=== PATIENT | female | born 1940 | race Caucasian/White ===

== ENCOUNTER 2016-09-09 23:17 | Emergency (ER) | payer MEDICARE, OTHER ==
[~2016-09-09] VITALS: Ht 147.3 cm; Wt 64.2 kg
[2016-09-09 23:19] VITALS: BP 157/82
== END 2016-09-10 00:49 | disposition home or self-care (01) ==
LOC: ED 23:59
DX: S81.812A Laceration without foreign body, left lower leg, initial encounter (principal); I10 Essential (primary) hypertension; G62.9 Polyneuropathy, unspecified; W22.8XXA Striking against or struck by other objects, initial encounter; Y93.89 Activity, other specified; Y99.8 Other external cause status; Y92.009 Unspecified place in unspecified non-institutional (private) residence as the place of occurrence of the external cause
CPT/HCPCS: 12002; 99283

== ENCOUNTER 2017-08-04 19:34 | Inpatient (IN) | payer MEDICARE, OTHER ==
[~2017-08-04] VITALS: Ht 147.3 cm; Wt 75.9 kg
[2017-08-04] MEDS ORDERED: OMNIPAQUE 350 MG/ML, 100ML BOTTLE ONE (20:00)
[2017-08-04] MEDS ORDERED: SODIUM CHLORIDE 0.9% 1,000 ML IV ONE (20:02)
[2017-08-04] MEDS ORDERED: LOPERAMIDE 2 MG CAPSULE ONE (20:24)
[2017-08-04] MEDS ORDERED: LOPERAMIDE 2 MG CAPSULE PO ONE (20:30)
[2017-08-04] MEDS ORDERED: SODIUM CHLORIDE FLUSH 10ML SYR IVF ONE (20:30)
[2017-08-04] MEDS ORDERED: SODIUM CHLORIDE 0.9% 1,000ML IVBOLUS ONE (20:30)
[2017-08-04 20:36] LABS: BASOPHILS # (AUTO) 0.01 x10^3/uL (0-0.1); BASOPHILS % (AUTO) 0 % (0-1); EOSINOPHILS # (AUTO) 0.01 x10^3/uL (0-0.4); EOSINOPHILS % (AUTO) 0 % (1-7); LYMPHOCYTES # (AUTO) 1.67 x10^3/uL (1-3.4); LYMPHOCYTES % (AUTO) 10 % (22-44); MD NO; MEAN CORPUSCULAR HEMOGLOBIN 30.8 pg (27.0-34.8); MEAN CORPUSCULAR HGB CONC 34.5 g/dL (32.4-35.8); MEAN CORPUSCULAR VOLUME 89.3 fL (80-100); MEAN PLATELET VOLUME 7.9 fL (7.4-10.4); MONOCYTES # (AUTO) 1.37 x10^3/uL (0.2-0.8); MONOCYTES % (AUTO) 8 % (2-9); NEUTROPHILS % (AUTO) 82 % (42-75); PLATELET COUNT 324 x10^3/uL (130-400); RED BLOOD COUNT 4.18 x10^6/uL (3.82-5.3); RED CELL DISTRIBUTION WIDTH 14.3 % (9.6-15.2)
[2017-08-04 20:43] LABS: ALBUMIN 3.4 g/dL (3.4-5.0); ANION GAP 12 mmol/L (5-15); CALCIUM 8.4 mg/dL (8.5-10.1); CHLORIDE 103 mmol/L (98-107); CREATININE 2.73 mg/dL (0.55-1.02)
[2017-08-04 20:51] LABS: ALANINE AMINOTRANSFERASE 25 U/L (12-78); ALKALINE PHOSPHATASE 94 U/L (45-117); BILIRUBIN,TOTAL 0.6 mg/dL (0.2-1.0); TOTAL PROTEIN 7.1 g/dL (6.4-8.2)
[2017-08-04] MEDS ORDERED: OMEP-110 PO (21:36)
[2017-08-04] MEDS ORDERED: VITA400C42 PO (21:36)
[2017-08-04] MEDS ORDERED: CHOL100012 PO (21:36)
[2017-08-04] MEDS ORDERED: CYCL1DRO EACHEYE (21:36)
[2017-08-04] MEDS ORDERED: FLAX1CAP6 PO (21:36)
[2017-08-04] MEDS ORDERED: FURO40TA6 PO (21:36)
[2017-08-04] MEDS ORDERED: ASCO500C2 PO (21:36)
[2017-08-04] MEDS ORDERED: METO25TA2 PO (21:36)
[2017-08-04] MEDS ORDERED: DESL5TAB PO (21:36)
[2017-08-04] MEDS ORDERED: BENA20TA2 PO (21:36)
[2017-08-04] MEDS ORDERED: ASPI-621 PO (21:36)
[2017-08-04] MEDS ORDERED: MULT-717 PO (21:36)
[2017-08-04] MEDS ORDERED: OMEG-82 PO (21:36)
[2017-08-04] MEDS ORDERED: OLOP2.5D EACHEYE (21:36)
[2017-08-04] MEDS ORDERED: FLUT15.87 NAS (21:36)
[2017-08-04] MEDS ORDERED: CALC-534 PO (21:36)
[2017-08-04] MEDS ORDERED: PREG75CA PO (21:36)
[2017-08-04] MEDS ORDERED: PRAV10TA2 PO (21:36)
[2017-08-04] MEDS ORDERED: PREG150C PO (21:36)
[2017-08-04] MEDS ORDERED: NORT25CA PO (21:36)
[2017-08-04] MEDS ORDERED: LEVO88TA43 PO (21:36)
[2017-08-04] MEDS ORDERED: CIPROFLOXACIN/PMX 400MG/200ML 200 ML IV ONE (22:30)
[2017-08-04] MEDS ORDERED: METRONIDAZOLE PMX 500MG/100ML 100 ML IV ONE (22:30)
[2017-08-04] MEDS ORDERED: SODIUM CHLORIDE 0.9% 1,000 ML IV SCH (22:40)
[2017-08-04] MEDS ORDERED: ACETAMINOPHEN 325 MG TABLET PO PRN (23:00)
[2017-08-04] MEDS ORDERED: PHARMACY MAY ADJ FOR RENAL FX MC PRN (23:00)
[2017-08-04] MEDS ORDERED: ONDANSETRON ODT 4 MG PO PRN (23:00)
[2017-08-04] MEDS ORDERED: FUROSEMIDE 40 MG TABLET PO PRN (23:00)
[2017-08-05 00:11] VITALS: BP 102/64
[2017-08-05] MEDS ORDERED: CIPROFLOXACIN/PMX 400MG/200ML 200 ML IV SCH ×2 (00:30→23:00)
[2017-08-05] MEDS: PREGABALIN 150 MG CAPSULE PO SCH ×2 (00:32→20:52)
[2017-08-05] MEDS: PRAVASTATIN 20 MG TABLET PO SCH ×2 (00:32→20:51)
[2017-08-05] MEDS: NORTRIPTYLINE 25 MG CAPSULE PO SCH ×2 (00:32→20:51)
[2017-08-05 00:47] VITALS: BP 102/64
[2017-08-05] MEDS: METRONIDAZOLE PMX 500MG/100ML 100 ML IV SCH ×4 (02:14→20:51)
[2017-08-05 04:00] VITALS: BP 91/57
[2017-08-05 05:03] LABS: ANION GAP 9 mmol/L (5-15); CALCIUM 7.5 mg/dL (8.5-10.1); CHLORIDE 108 mmol/L (98-107); CREATININE 1.95 mg/dL (0.55-1.02)
[2017-08-05 05:11] LABS: BASOPHILS # (AUTO) 0.04 x10^3/uL (0-0.1); BASOPHILS % (AUTO) 0 % (0-1); EOSINOPHILS # (AUTO) 0.05 x10^3/uL (0-0.4); EOSINOPHILS % (AUTO) 0 % (1-7); LYMPHOCYTES # (AUTO) 2.47 x10^3/uL (1-3.4); LYMPHOCYTES % (AUTO) 18 % (22-44); MD NO; MEAN CORPUSCULAR HEMOGLOBIN 31.6 pg (27.0-34.8); MEAN CORPUSCULAR HGB CONC 34.9 g/dL (32.4-35.8); MEAN CORPUSCULAR VOLUME 90.4 fL (80-100); MEAN PLATELET VOLUME 7.8 fL (7.4-10.4); MONOCYTES # (AUTO) 1.11 x10^3/uL (0.2-0.8); MONOCYTES % (AUTO) 8 % (2-9); NEUTROPHILS # (AUTO) 9.97 x10^3/uL (1.8-6.8); NEUTROPHILS % (AUTO) 73 % (42-75); PLATELET COUNT 246 x10^3/uL (130-400); RED BLOOD COUNT 3.74 x10^6/uL (3.82-5.3); RED CELL DISTRIBUTION WIDTH 14.6 % (9.6-15.2)
[2017-08-05] MEDS: LEVOTHYROXINE 88 MCG TABLET PO SCH (06:19)
[2017-08-05] MEDS ORDERED: MAGNESIUM SULFATE PMX 4GM/100M 100 ML IV ONE (07:30)
[2017-08-05 07:51] VITALS: BP 93/62
[2017-08-05] MEDS: LORATADINE 10 MG TABLET PO SCH (08:32)
[2017-08-05] MEDS: MULTIVITAMINS/MINERALS TABLET PO SCH (08:32)
[2017-08-05] MEDS: PREGABALIN 75 MG CAPSULE PO SCH (08:32)
[2017-08-05] MEDS: OMEPRAZOLE 20 MG CAPSULE.DR PO SCH (08:32)
[2017-08-05] MEDS: LACTATED RINGERS 1,000 ML IV SCH ×2 (08:33→17:47)
[2017-08-05] MEDS: OLOPATADINE HCL EACHEYE SCH (08:33)
[2017-08-05] MEDS ORDERED: BENAZEPRIL 20 MG TABLET PO SCH (09:00)
[2017-08-05] MEDS: FLUTICASONE NASAL SPRAY 16GM NAS SCH (10:30)
[2017-08-05 12:31] VITALS: BP 104/67
[2017-08-05 20:14] VITALS: BP 108/67
[2017-08-05] MEDS: METOPROLOL SUCCINATE 25 MG TAB.ER.24H PO SCH (20:51)
[2017-08-05 21:20] LABS: MICROSCOPIC AUTO
[2017-08-05 21:28] LABS: CULTURE INDICATED? YES
[2017-08-06 00:27] VITALS: BP 118/74
[2017-08-06] MEDS: METRONIDAZOLE PMX 500MG/100ML 100 ML IV SCH ×4 (02:41→20:02)
[2017-08-06] MEDS: LACTATED RINGERS 1,000 ML IV SCH ×2 (03:45→12:00)
[2017-08-06] MEDS: LEVOTHYROXINE 88 MCG TABLET PO SCH (06:25)
[2017-08-06 07:36] VITALS: BP 97/56
[2017-08-06] MEDS ORDERED: POLYETHYLENE GLYCOL 17 GM PACKET PO ONE (08:00)
[2017-08-06 08:25] LABS: BASOPHILS # (AUTO) 0.06 x10^3/uL (0-0.1); BASOPHILS % (AUTO) 1 % (0-1); EOSINOPHILS # (AUTO) 0.15 x10^3/uL (0-0.4); EOSINOPHILS % (AUTO) 1 % (1-7); LYMPHOCYTES # (AUTO) 1.95 x10^3/uL (1-3.4); LYMPHOCYTES % (AUTO) 18 % (22-44); MD NO; MEAN CORPUSCULAR HEMOGLOBIN 30.1 pg (27.0-34.8); MEAN CORPUSCULAR HGB CONC 33.6 g/dL (32.4-35.8); MEAN CORPUSCULAR VOLUME 89.7 fL (80-100); MEAN PLATELET VOLUME 7.7 fL (7.4-10.4); MONOCYTES # (AUTO) 0.83 x10^3/uL (0.2-0.8); MONOCYTES % (AUTO) 8 % (2-9); NEUTROPHILS # (AUTO) 7.94 x10^3/uL (1.8-6.8); NEUTROPHILS % (AUTO) 73 % (42-75); PLATELET COUNT 289 x10^3/uL (130-400); RED BLOOD COUNT 3.77 x10^6/uL (3.82-5.3); RED CELL DISTRIBUTION WIDTH 14.9 % (9.6-15.2)
[2017-08-06 08:38] LABS: ALANINE AMINOTRANSFERASE 33 U/L (12-78); ALBUMIN 2.6 g/dL (3.4-5.0); ANION GAP 7 mmol/L (5-15); CALCIUM 7.8 mg/dL (8.5-10.1); CHLORIDE 112 mmol/L (98-107); CREATININE 0.97 mg/dL (0.55-1.02)
[2017-08-06 08:40] LABS: ALKALINE PHOSPHATASE 71 U/L (45-117); BILIRUBIN,TOTAL 0.4 mg/dL (0.2-1.0); TOTAL PROTEIN 6.2 g/dL (6.4-8.2)
[2017-08-06] MEDS: OLOPATADINE HCL EACHEYE SCH (09:00)
[2017-08-06] MEDS: MULTIVITAMINS/MINERALS TABLET PO SCH (09:37)
[2017-08-06] MEDS: FLUTICASONE NASAL SPRAY 16GM NAS SCH (09:37)
[2017-08-06] MEDS: PREGABALIN 75 MG CAPSULE PO SCH (09:37)
[2017-08-06] MEDS: LORATADINE 10 MG TABLET PO SCH (09:37)
[2017-08-06] MEDS: OMEPRAZOLE 20 MG CAPSULE.DR PO SCH (09:38)
[2017-08-06 12:37] VITALS: BP 109/50
[2017-08-06] MEDS: CIPROFLOXACIN/PMX 400MG/200ML 200 ML IV SCH (17:42)
[2017-08-06 19:45] VITALS: BP 111/62
[2017-08-06] MEDS: PRAVASTATIN 20 MG TABLET PO SCH (20:02)
[2017-08-06] MEDS: NORTRIPTYLINE 25 MG CAPSULE PO SCH (20:02)
[2017-08-06] MEDS: METOPROLOL SUCCINATE 25 MG TAB.ER.24H PO SCH (20:02)
[2017-08-06] MEDS: PREGABALIN 150 MG CAPSULE PO SCH (20:03)
[2017-08-07] MEDS: METRONIDAZOLE PMX 500MG/100ML 100 ML IV SCH ×3 (02:36→18:38)
[2017-08-07 02:44] VITALS: BP 113/68
[2017-08-07] MEDS: CIPROFLOXACIN/PMX 400MG/200ML 200 ML IV SCH ×3 (05:18→23:53)
[2017-08-07] MEDS: LEVOTHYROXINE 88 MCG TABLET PO SCH (05:18)
[2017-08-07 06:21] LABS: BASOPHILS # (AUTO) 0.03 x10^3/uL (0-0.1); BASOPHILS % (AUTO) 0 % (0-1); EOSINOPHILS # (AUTO) 0.22 x10^3/uL (0-0.4); EOSINOPHILS % (AUTO) 3 % (1-7); LYMPHOCYTES # (AUTO) 2.15 x10^3/uL (1-3.4); LYMPHOCYTES % (AUTO) 30 % (22-44); MD NO; MEAN CORPUSCULAR HEMOGLOBIN 30.5 pg (27.0-34.8); MEAN CORPUSCULAR HGB CONC 33.7 g/dL (32.4-35.8); MEAN CORPUSCULAR VOLUME 90.5 fL (80-100); MEAN PLATELET VOLUME 7.7 fL (7.4-10.4); MONOCYTES # (AUTO) 0.64 x10^3/uL (0.2-0.8); MONOCYTES % (AUTO) 9 % (2-9); NEUTROPHILS # (AUTO) 4.19 x10^3/uL (1.8-6.8); NEUTROPHILS % (AUTO) 58 % (42-75); PLATELET COUNT 287 x10^3/uL (130-400); RED BLOOD COUNT 3.53 x10^6/uL (3.82-5.3); RED CELL DISTRIBUTION WIDTH 15.1 % (9.6-15.2)
[2017-08-07 06:32] LABS: ALBUMIN 2.3 g/dL (3.4-5.0); ANION GAP 8 mmol/L (5-15); CALCIUM 7.9 mg/dL (8.5-10.1); CHLORIDE 113 mmol/L (98-107)
[2017-08-07 06:35] LABS: ALANINE AMINOTRANSFERASE 28 U/L (12-78); ALKALINE PHOSPHATASE 58 U/L (45-117); BILIRUBIN,TOTAL 0.4 mg/dL (0.2-1.0); CREATININE 0.77 mg/dL (0.55-1.02); TOTAL PROTEIN 5.4 g/dL (6.4-8.2)
[2017-08-07 08:26] VITALS: BP 156/83
[2017-08-07] MEDS: OLOPATADINE HCL EACHEYE SCH (09:57)
[2017-08-07] MEDS: LORATADINE 10 MG TABLET PO SCH (10:00)
[2017-08-07] MEDS: FLUTICASONE NASAL SPRAY 16GM NAS SCH ×2 (10:00→10:14)
[2017-08-07] MEDS: PREGABALIN 75 MG CAPSULE PO SCH (10:00)
[2017-08-07] MEDS: OMEPRAZOLE 20 MG CAPSULE.DR PO SCH (10:00)
[2017-08-07] MEDS: POLYETHYLENE GLYCOL 17 GM PACKET PO SCH (10:00)
[2017-08-07] MEDS: MULTIVITAMINS/MINERALS TABLET PO SCH (10:00)
[2017-08-07 14:34] VITALS: BP 159/79
[2017-08-07 19:04] VITALS: BP 131/71
[2017-08-07] MEDS: METOPROLOL SUCCINATE 25 MG TAB.ER.24H PO SCH (21:45)
[2017-08-07] MEDS: NORTRIPTYLINE 25 MG CAPSULE PO SCH (21:45)
[2017-08-07] MEDS: PRAVASTATIN 20 MG TABLET PO SCH (21:46)
[2017-08-07] MEDS: PREGABALIN 150 MG CAPSULE PO SCH (21:46)
[2017-08-08 00:47] VITALS: BP 135/79
[2017-08-08] MEDS: METRONIDAZOLE PMX 500MG/100ML 100 ML IV SCH (02:37)
[2017-08-08] MEDS: LEVOTHYROXINE 88 MCG TABLET PO SCH (05:42)
[2017-08-08] MEDS ORDERED: MAGNESIUM CITRATE 300ML ORAL SOL PO PRN (06:30)
[2017-08-08 08:00] VITALS: BP 145/83
[2017-08-08] MEDS: POLYETHYLENE GLYCOL 17 GM PACKET PO SCH (08:05)
[2017-08-08] MEDS: MULTIVITAMINS/MINERALS TABLET PO SCH (08:05)
[2017-08-08] MEDS: PREGABALIN 75 MG CAPSULE PO SCH (08:05)
[2017-08-08] MEDS: OMEPRAZOLE 20 MG CAPSULE.DR PO SCH (08:05)
[2017-08-08] MEDS: LORATADINE 10 MG TABLET PO SCH (08:05)
[2017-08-08] MEDS: FLUTICASONE NASAL SPRAY 16GM NAS SCH (08:06)
[2017-08-08] MEDS: OLOPATADINE HCL EACHEYE SCH (08:07)
[2017-08-08 13:50] VITALS: BP 131/70
[2017-08-08 14:01] LABS: BASOPHILS # (AUTO) 0.05 x10^3/uL (0-0.1); BASOPHILS % (AUTO) 1 % (0-1); EOSINOPHILS # (AUTO) 0.27 x10^3/uL (0-0.4); EOSINOPHILS % (AUTO) 4 % (1-7); LYMPHOCYTES # (AUTO) 2.33 x10^3/uL (1-3.4); LYMPHOCYTES % (AUTO) 33 % (22-44); MD SCAN; MEAN CORPUSCULAR HEMOGLOBIN 30.7 pg (27.0-34.8); MEAN CORPUSCULAR VOLUME 90.5 fL (80-100); MEAN PLATELET VOLUME 7.7 fL (7.4-10.4); MONOCYTES # (AUTO) 0.72 x10^3/uL (0.2-0.8); MONOCYTES % (AUTO) 10 % (2-9); NEUTROPHILS # (AUTO) 3.68 x10^3/uL (1.8-6.8); NEUTROPHILS % (AUTO) 52 % (42-75); PLATELET COUNT 361 x10^3/uL (130-400); RED CELL DISTRIBUTION WIDTH 14.8 % (9.6-15.2)
== END 2017-08-08 16:14 | disposition home or self-care (01) | DRG 871 ==
LOC: ED 22:33 → EDIP 22:53 → 4WST 23:46 → DCLOUNGE 08-08 16:05
PROVIDERS: ADMIT Hospitalist; ATTEND Hospitalist
DX: A41.9 Sepsis, unspecified organism (principal); N17.0 Acute kidney failure with tubular necrosis; I95.9 Hypotension, unspecified; G62.9 Polyneuropathy, unspecified; E86.1 Hypovolemia; E87.1 Hypo-osmolality and hyponatremia; I11.9 Hypertensive heart disease without heart failure; A09 Infectious gastroenteritis and colitis, unspecified; K92.1 Melena; E03.9 Hypothyroidism, unspecified; E78.5 Hyperlipidemia, unspecified; I73.9 Peripheral vascular disease, unspecified; Z82.3 Family history of stroke; Z90.49 Acquired absence of other specified parts of digestive tract; Z88.1 Allergy status to other antibiotic agents
CPT/HCPCS: 36415; 74176; 80048; 80053; 81001; 83605; 83690; 83735; 85025; 87040; 87086; 93005; 96360; 96361; J0744; Q9967; J3475; J7030; J7120

== ENCOUNTER → 2017-10-03 | Outpatient (CLI) | payer MEDICARE, OTHER ==
[~2017-10-03] MED LIST: ASCO500C2 PO; ASPI-621 PO; BENA20TA2 PO; CALC-534 PO; CHOL100012 PO; CYCL1DRO EACHEYE; DESL5TAB PO; FLAX1CAP6 PO; FLUT15.87 NAS; FURO40TA6 PO; LEVO88TA43 PO; METO25TA2 PO; MULT-717 PO; NORT25CA PO; OLOP2.5D EACHEYE; OMEG-82 PO; OMEP-110 PO; PRAV10TA2 PO; PREG150C PO; PREG75CA PO; VITA400C42 PO
== END | disposition home or self-care (01) ==
LOC: WOUND 09:05
PROVIDERS: ATTEND Podiatrist Foot & Ankle Surgery
DX: I87.332 Chronic venous hypertension (idiopathic) with ulcer and inflammation of left lower extremity (principal); L97.821 Non-pressure chronic ulcer of other part of left lower leg limited to breakdown of skin; E78.5 Hyperlipidemia, unspecified; I73.9 Peripheral vascular disease, unspecified; E03.9 Hypothyroidism, unspecified; G62.9 Polyneuropathy, unspecified; I11.9 Hypertensive heart disease without heart failure; Z90.710 Acquired absence of both cervix and uterus; Z90.49 Acquired absence of other specified parts of digestive tract
CPT/HCPCS: 29581; G0463; WOU0463

== ENCOUNTER → 2017-10-10 | Outpatient (CLI) | payer MEDICARE, OTHER ==
[~2017-10-10] MED LIST changes: -BENA20TA2 PO; +BENA20TA4 PO
== END | disposition home or self-care (01) ==
LOC: WOUND 10:17
PROVIDERS: ATTEND Podiatrist Foot & Ankle Surgery
DX: I87.332 Chronic venous hypertension (idiopathic) with ulcer and inflammation of left lower extremity (principal); L97.821 Non-pressure chronic ulcer of other part of left lower leg limited to breakdown of skin; E78.5 Hyperlipidemia, unspecified; I73.9 Peripheral vascular disease, unspecified; E03.9 Hypothyroidism, unspecified; G62.9 Polyneuropathy, unspecified; I11.9 Hypertensive heart disease without heart failure; Z90.710 Acquired absence of both cervix and uterus; Z90.49 Acquired absence of other specified parts of digestive tract
CPT/HCPCS: G0463; WOU0463

== ENCOUNTER → 2017-10-24 | Outpatient (CLI) | payer MEDICARE, OTHER | END | disposition home or self-care (01) | LOC: WOUND 11:00 | PROVIDERS: ATTEND Podiatrist Foot & Ankle Surgery | DX: I87.332 Chronic venous hypertension (idiopathic) with ulcer and inflammation of left lower extremity (principal); L97.821 Non-pressure chronic ulcer of other part of left lower leg limited to breakdown of skin; E78.5 Hyperlipidemia, unspecified; I73.9 Peripheral vascular disease, unspecified; E03.9 Hypothyroidism, unspecified; G62.9 Polyneuropathy, unspecified; I11.9 Hypertensive heart disease without heart failure; Z90.710 Acquired absence of both cervix and uterus; Z90.49 Acquired absence of other specified parts of digestive tract | CPT/HCPCS: G0463; WOU0463 ==

== ENCOUNTER → 2017-11-07 | Outpatient (CLI) | payer MEDICARE, OTHER | END | disposition home or self-care (01) | LOC: WOUND 14:09 | PROVIDERS: ATTEND Podiatrist Foot & Ankle Surgery | DX: I87.332 Chronic venous hypertension (idiopathic) with ulcer and inflammation of left lower extremity (principal); L97.821 Non-pressure chronic ulcer of other part of left lower leg limited to breakdown of skin; E78.5 Hyperlipidemia, unspecified; I11.9 Hypertensive heart disease without heart failure; E03.8 Other specified hypothyroidism; I73.9 Peripheral vascular disease, unspecified; G62.9 Polyneuropathy, unspecified; Z90.49 Acquired absence of other specified parts of digestive tract; Z90.710 Acquired absence of both cervix and uterus | CPT/HCPCS: 29581 ==

== ENCOUNTER → 2017-11-14 | Outpatient (CLI) | payer MEDICARE, OTHER | END | disposition home or self-care (01) | LOC: WOUND 13:26 | PROVIDERS: ATTEND Podiatrist Foot & Ankle Surgery | DX: I87.322 Chronic venous hypertension (idiopathic) with inflammation of left lower extremity (principal); L97.821 Non-pressure chronic ulcer of other part of left lower leg limited to breakdown of skin; I11.9 Hypertensive heart disease without heart failure; E03.8 Other specified hypothyroidism; E78.5 Hyperlipidemia, unspecified; G90.09 Other idiopathic peripheral autonomic neuropathy; Z90.710 Acquired absence of both cervix and uterus; Z90.49 Acquired absence of other specified parts of digestive tract | CPT/HCPCS: G0463; WOU0463 ==

== ENCOUNTER → 2018-07-09 | Outpatient (CLI) | payer MEDICARE, OTHER ==
[~2018-07-09] MED LIST changes: -ASPI-621 PO; +ASPI81TA45 PO; -BENA20TA4 PO; +BENA20TA54 PO; -NORT25CA PO; +NORT25CA78 PO
== END | disposition home or self-care (01) ==
LOC: CFH 13:04 → EDSTATUS 13:30
PROVIDERS: ATTEND Nurse Practitioner
DX: Z12.31 Encounter for screening mammogram for malignant neoplasm of breast (principal); Z88.1 Allergy status to other antibiotic agents; Z88.8 Allergy status to other drugs, medicaments and biological substances
CPT/HCPCS: 77067

== ENCOUNTER 2019-03-06 17:49 | Inpatient (IN) | payer MEDICARE, OTHER ==
[~2019-03-06] VITALS: Ht 144.8 cm; Wt 72.9 kg
--- NOTE | 2019-03-06 20:16 | NUR ---
PT TO ROOM FROM LOBBY
--- NOTE | 2019-03-06 20:40 | NUR ---
PT WITH BLEEDING WHEN SHE HAS A BM THAT STARTED TODAY/ PT REPORTS LOOSE STOOLS AND CRAMPING.
--- NOTE | 2019-03-06 20:44 | NUR ---
ER ARACELI LISA IN TO CONDUCT RECTAL EXAM AT THIS TIME
[2019-03-06 21:17] LABS: BASOPHILS # (AUTO) 0.06 x10^3/uL (0-0.1); BASOPHILS % (AUTO) 1 % (0-1); EOSINOPHILS # (AUTO) 0.12 x10^3/uL (0-0.4); EOSINOPHILS % (AUTO) 1 % (1-7); LYMPHOCYTES # (AUTO) 1.13 x10^3/uL (1-3.4); LYMPHOCYTES % (AUTO) 9 % (22-44); MD NO; MEAN CORPUSCULAR HEMOGLOBIN 30.8 pg (27.0-34.8); MEAN CORPUSCULAR HGB CONC 33.4 g/dL (32.4-35.8); MEAN CORPUSCULAR VOLUME 92.1 fL (80-100); MEAN PLATELET VOLUME 7.4 fL (7.4-10.4); MONOCYTES # (AUTO) 0.68 x10^3/uL (0.2-0.8); MONOCYTES % (AUTO) 5 % (2-9); NEUTROPHILS # (AUTO) 10.88 x10^3/uL (1.8-6.8); NEUTROPHILS % (AUTO) 85 % (42-75); PLATELET COUNT 319 x10^3/uL (130-400); RED BLOOD COUNT 4.56 x10^6/uL (3.82-5.3); RED CELL DISTRIBUTION WIDTH 14.1 % (9.6-15.2)
[2019-03-06 21:27] LABS: ALBUMIN 3.5 g/dL (3.4-5.0); ANION GAP 8 mmol/L (5-15); CALCIUM 8.5 mg/dL (8.5-10.1); CHLORIDE 101 mmol/L (98-107)
[2019-03-06 21:32] LABS: ALANINE AMINOTRANSFERASE 20 U/L (12-78); ALKALINE PHOSPHATASE 147 U/L (45-117); BILIRUBIN,TOTAL 0.4 mg/dL (0.2-1.0); CREATININE 1.39 mg/dL (0.55-1.02); TOTAL PROTEIN 7.5 g/dL (6.4-8.2)
[2019-03-06 21:56] LABS: MICROSCOPIC INDICATED
[2019-03-06 21:57] LABS: CULTURE INDICATED? YES
--- NOTE | 2019-03-06 22:50 | NUR ---
PT FOR RECHECK
[2019-03-07] MEDS ORDERED: morphine SULFATE 10 MG/ML, 1ML IVPush PRN
[2019-03-07] MEDS ORDERED: ACETAMINOPHEN 325 MG TABLET PO PRN
[2019-03-07] MEDS ORDERED: ONDANSETRON 2MG/ML, 2ML IVPush PRN
[2019-03-07] MEDS ORDERED: OMNIPAQUE 350 MG/ML, 100ML BOTTLE ONE (00:05)
--- NOTE | 2019-03-07 00:26 | NUR ---
PT ASSISTED TO THE BEDSIDE CAMMODE FOR A BRIGHT RED BM. MOSTLY BLOOD, APPROX 75CC. ADULT DIAPER APPLIED TO PT AND INFORMED THAT SHE CAN GO TO THE BATHROOM IN DIAPER AND I WILL CHANGE IT.
[2019-03-07] MEDS ORDERED: METRONIDAZOLE PMX 500MG/100ML 100 ML ONE ×2 (01:22→08:02)
[2019-03-07] MEDS ORDERED: CIPROFLOXACIN/PMX 400MG/200ML 200 ML ONE ×2 (01:22→12:33)
[2019-03-07] MEDS: CIPROFLOXACIN/PMX 400MG/200ML 200 ML IV SCH ×2 (01:26→13:00)
--- NOTE | 2019-03-07 01:33 | NUR ---
BREAK RN: PATIENT STARTED ON CIPRO. DISCUSSED WITH PA, DENIES NEED FOR X2 BLOOD CULTURES PRIOR TO ABX ADMIN
--- NOTE | 2019-03-07 01:55 | NUR ---
BREAK RN: REPORT GIVEN TO REECE CALDERON. YUMIKO TO ASSUME CARE AT THIS TIME.
[2019-03-07] MEDS: PREGABALIN 150 MG CAPSULE PO SCH ×2 (02:14→20:22)
[2019-03-07] MEDS: NORTRIPTYLINE 25 MG CAPSULE PO SCH ×2 (02:15→20:22)
[2019-03-07] MEDS: PRAVASTATIN 20 MG TABLET PO SCH ×2 (02:15→20:22)
[2019-03-07] MEDS ORDERED: METOPROLOL TARTRATE 25 MG TABLET ONE (02:16)
[2019-03-07] MEDS: METOPROLOL SUCCINATE 25 MG TAB.ER.24H PO SCH ×3 (02:20→20:25)
[2019-03-07] MEDS: METRONIDAZOLE PMX 500MG/100ML 100 ML IV SCH ×3 (03:01→17:14)
[2019-03-07] MEDS: SODIUM CHLORIDE 0.9% 1,000 ML IV SCH ×3 (03:03→09:40)
--- NOTE | 2019-03-07 03:33 | NUR ---
METOPROLOL TARTRATE 25MG GIVEN INSTEAD METOPROLOL SUCCINATE 25MG. PT BP DROPPED TO 86/46. DR GRUBBS NOTIFIED AND MAINTENENCE FLUID INITIATED TO MAINTAIN SBP>90
--- NOTE | 2019-03-07 04:01 | NUR ---
PT DIAPER CHANGED AND NEW ONE APPLIED. SMALL AMOUNT OF BLOOD/MUCOUS/URINE MIX IN DIAPER.
--- NOTE | 2019-03-07 04:49 | NUR ---
PT STOOL IN DIAPER. SOFT BROWN/GREEN STOOL, SAMPLE WALKED TO LAB FOR ANALYSIS. PT CLEANED AND PROVIDED NEW DIAPER. PT MOVED TO HOSPITAL BED.
[2019-03-07 05:45] LABS: CLOSTRIDIUM DIFFICILE ANTIGEN NEGATIVE; CLOSTRIDIUM DIFFICILE TOXIN NEGATIVE (Negative)
[2019-03-07 05:47] LABS: CHLORIDE 105 mmol/L (98-107)
[2019-03-07 05:55] LABS: ALANINE AMINOTRANSFERASE 15 U/L (12-78); ALBUMIN 2.5 g/dL (3.4-5.0); ALKALINE PHOSPHATASE 111 U/L (45-117); ANION GAP 8 mmol/L (5-15); BILIRUBIN,TOTAL 0.3 mg/dL (0.2-1.0); CALCIUM 7.5 mg/dL (8.5-10.1); CREATININE 1.27 mg/dL (0.55-1.02); TOTAL PROTEIN 5.9 g/dL (6.4-8.2)
[2019-03-07 05:57] LABS: BASOPHILS # (AUTO) 0.05 x10^3/uL (0-0.1); BASOPHILS % (AUTO) 1 % (0-1); EOSINOPHILS # (AUTO) 0.01 x10^3/uL (0-0.4); EOSINOPHILS % (AUTO) 0 % (1-7); LYMPHOCYTES # (AUTO) 1.19 x10^3/uL (1-3.4); LYMPHOCYTES % (AUTO) 12 % (22-44); MD NO; MEAN CORPUSCULAR HEMOGLOBIN 30.2 pg (27.0-34.8); MEAN CORPUSCULAR HGB CONC 33.2 g/dL (32.4-35.8); MEAN CORPUSCULAR VOLUME 90.8 fL (80-100); MEAN PLATELET VOLUME 7.2 fL (7.4-10.4); MONOCYTES # (AUTO) 0.82 x10^3/uL (0.2-0.8); MONOCYTES % (AUTO) 8 % (2-9); NEUTROPHILS # (AUTO) 7.88 x10^3/uL (1.8-6.8); NEUTROPHILS % (AUTO) 79 % (42-75); PLATELET COUNT 268 x10^3/uL (130-400); RED BLOOD COUNT 4.04 x10^6/uL (3.82-5.3)
--- NOTE | 2019-03-07 06:58 | NUR ---
REPORT RECEIVED FROM YUMIKO NEWELL.
--- NOTE | 2019-03-07 07:05 | NUR ---
PATIENTS BRIEF CHANGED WITH NO STOOL PRESENT. PATIENT RESTING ON GURNEY WITH CALL LIGHT IN REACH.
--- NOTE | 2019-03-07 08:08 | NUR ---
SHELLY REQUESTED FROM PHARMACY.
--- NOTE | 2019-03-07 08:45 | NUR ---
0900 MEDICATIONS REQUESTED FROM PHARMACY.
[2019-03-07] MEDS: ASCORBIC ACID 500 MG TABLET PO SCH (09:35)
[2019-03-07] MEDS: PREGABALIN 75 MG CAPSULE PO SCH (09:35)
[2019-03-07] MEDS: LEVOTHYROXINE 88 MCG TABLET PO SCH (09:36)
[2019-03-07] MEDS: CHOLECALCIFEROL 1,000 UNIT TABLET PO SCH (09:36)
[2019-03-07] MEDS: FLUTICASONE NASAL SPRAY 16GM NAS SCH (09:38)
[2019-03-07] MEDS ORDERED: OMEPRAZOLE 20 MG CAPSULE.DR ONE (09:46)
--- NOTE | 2019-03-07 09:50 | NUR ---
NOT ALL ORDERED MEDICATIONS RECEIVED FROM PHARMACY.
--- NOTE | 2019-03-07 09:52 | NUR ---
SPOKE TO TUSHAR FOURNIER APRN ABOUT PATIENTS AUDIBLE EXPRIATORY WHEEZES. VERBAL ORDER RECEIVED FOR PORTABLE CHEST XRAY.
[2019-03-07] MEDS: OMEPRAZOLE 20 MG CAPSULE.DR PO SCH (09:55)
[2019-03-07] MEDS: DESLORATADINE PO SCH (10:03)
[2019-03-07] MEDS: OLOPATADINE HCL EACHEYE SCH (10:03)
[2019-03-07] MEDS: CYCLOSPORINE EACHEYE SCH ×3 (10:03→19:55)
[2019-03-07] MEDS: [UNRECOGNIZED DRUG - MIXTURE] PO SCH (10:04)
[2019-03-07] MEDS: MULTIVITAMIN PO SCH (10:04)
[2019-03-07] MEDS: [UNRECOGNIZED DRUG - OTHER] PO SCH (10:04)
[2019-03-07] MEDS: [UNRECOGNIZED DRUG - OTHER] PO SCH (10:04)
[2019-03-07] MEDS: [UNRECOGNIZED DRUG - OTHER] PO SCH (10:04)
--- NOTE | 2019-03-07 10:05 | NUR ---
TELEPHONE CONVERSATION WITH JUDITH IN PHARMACY ABOUT MEDS NOT RECEIVED. STATED NON FORMULARY MEDICATIONS NOT AVAILABLE. ADVISED TO CHART NOT GIVEN. DOCUMENTED IN EMAR.
--- NOTE | 2019-03-07 12:03 | NUR ---
TELEPHONE CONVERSATION WITH PATIENTS NATA PERKINS AFTER RECEIVING JERMAIN VERBAL CONSENT. SON STATES HE WILL BRING HER MEDS IN AND THAT THEY ARE ON THEIR WAY TO VISIT HER.
--- NOTE | 2019-03-07 13:08 | NUR ---
PATIENT MEDICATED PER EMAR.
--- NOTE | 2019-03-07 13:30 | NUR ---
CLEAR LIQUID DIET TRAY DELIVERED.
[2019-03-07 18:57] VITALS: BP 100/64
[2019-03-07 20:20] VITALS: BP 116/74
[2019-03-08 00:33] VITALS: BP 136/75
[2019-03-08] MEDS: METRONIDAZOLE PMX 500MG/100ML 100 ML IV SCH ×3 (00:48→16:56)
[2019-03-08] MEDS: CIPROFLOXACIN/PMX 400MG/200ML 200 ML IV SCH ×2 (02:32→13:20)
[2019-03-08] MEDS: SODIUM CHLORIDE 0.9% 1,000 ML IV SCH ×2 (05:42→22:36)
[2019-03-08 08:33] VITALS: BP 121/73
[2019-03-08] MEDS ORDERED: VITAMIN E 400 UNITS CAPSULE PO SCH (09:00)
[2019-03-08] MEDS: [UNRECOGNIZED DRUG - OTHER] PO SCH (09:00)
[2019-03-08] MEDS: OLOPATADINE HCL EACHEYE SCH (09:00)
[2019-03-08] MEDS: DESLORATADINE PO SCH (09:00)
[2019-03-08] MEDS: [UNRECOGNIZED DRUG - MIXTURE] PO SCH (09:00)
[2019-03-08] MEDS: MULTIVITAMIN PO SCH (09:00)
[2019-03-08] MEDS: [UNRECOGNIZED DRUG - OTHER] PO SCH (09:00)
[2019-03-08] MEDS: [UNRECOGNIZED DRUG - OTHER] PO SCH (09:00)
[2019-03-08] MEDS: CYCLOSPORINE EACHEYE SCH ×2 (09:00→20:59)
[2019-03-08] MEDS: CHOLECALCIFEROL 1,000 UNIT TABLET PO SCH (09:35)
[2019-03-08] MEDS: OMEPRAZOLE 20 MG CAPSULE.DR PO SCH (09:35)
[2019-03-08] MEDS: ASCORBIC ACID 500 MG TABLET PO SCH (09:35)
[2019-03-08] MEDS: LEVOTHYROXINE 88 MCG TABLET PO SCH (09:35)
[2019-03-08] MEDS: PREGABALIN 75 MG CAPSULE PO SCH (09:35)
[2019-03-08] MEDS: FLUTICASONE NASAL SPRAY 16GM NAS SCH (09:36)
[2019-03-08 16:05] VITALS: BP 169/81
[2019-03-08 18:43] VITALS: BP 123/76
[2019-03-08] MEDS: PREGABALIN 150 MG CAPSULE PO SCH (21:14)
[2019-03-08] MEDS: NORTRIPTYLINE 25 MG CAPSULE PO SCH (21:14)
[2019-03-08] MEDS: PRAVASTATIN 20 MG TABLET PO SCH (21:15)
[2019-03-08] MEDS: METOPROLOL SUCCINATE 25 MG TAB.ER.24H PO SCH (21:15)
[2019-03-09] MEDS: METRONIDAZOLE PMX 500MG/100ML 100 ML IV SCH (00:19)
[2019-03-09 01:20] VITALS: BP 149/77
[2019-03-09 07:09] VITALS: BP 150/75
[2019-03-09] MEDS: ASCORBIC ACID 500 MG TABLET PO SCH (07:45)
[2019-03-09] MEDS: CHOLECALCIFEROL 1,000 UNIT TABLET PO SCH (07:45)
[2019-03-09] MEDS: PREGABALIN 75 MG CAPSULE PO SCH (07:45)
[2019-03-09] MEDS: FLUTICASONE NASAL SPRAY 16GM NAS SCH (07:46)
[2019-03-09] MEDS: OMEPRAZOLE 20 MG CAPSULE.DR PO SCH (07:46)
[2019-03-09] MEDS: LEVOTHYROXINE 88 MCG TABLET PO SCH (07:46)
[2019-03-09] MEDS: CYCLOSPORINE EACHEYE SCH (07:52)
[2019-03-09] MEDS: OLOPATADINE HCL EACHEYE SCH (07:52)
[2019-03-09] MEDS: MULTIVITAMIN PO SCH (07:53)
[2019-03-09] MEDS: [UNRECOGNIZED DRUG - OTHER] PO SCH (07:53)
[2019-03-09] MEDS: [UNRECOGNIZED DRUG - MIXTURE] PO SCH (07:53)
[2019-03-09] MEDS: DESLORATADINE PO SCH (07:53)
[2019-03-09] MEDS: [UNRECOGNIZED DRUG - OTHER] PO SCH (07:53)
[2019-03-09] MEDS: [UNRECOGNIZED DRUG - OTHER] PO SCH (07:53)
[2019-03-09] MEDS ORDERED: CIPROFLOXACIN/PMX 400MG/200ML 200 ML IV SCH (08:00)
[2019-03-09] MEDS ORDERED: metroNIDAZOLE 500 MG TABLET PO SCH (09:00)
[2019-03-09] MEDS ORDERED: LACTOBACILLUS CHEW TABLET PO SCH (09:00)
[2019-03-09] MEDS ORDERED: ACETAMINOPHEN 325 MG TABLET PO PRN (09:30)
[2019-03-09 09:56] LABS: BASOPHILS # (AUTO) 0.03 x10^3/uL (0-0.1); BASOPHILS % (AUTO) 1 % (0-1); EOSINOPHILS # (AUTO) 0.84 x10^3/uL (0-0.4); EOSINOPHILS % (AUTO) 12 % (1-7); LYMPHOCYTES # (AUTO) 1.93 x10^3/uL (1-3.4); LYMPHOCYTES % (AUTO) 27 % (22-44); MD NO; MEAN CORPUSCULAR HEMOGLOBIN 30.8 pg (27.0-34.8); MEAN CORPUSCULAR HGB CONC 33.4 g/dL (32.4-35.8); MEAN CORPUSCULAR VOLUME 92.2 fL (80-100); MEAN PLATELET VOLUME 7.2 fL (7.4-10.4); MONOCYTES # (AUTO) 0.57 x10^3/uL (0.2-0.8); MONOCYTES % (AUTO) 8 % (2-9); NEUTROPHILS # (AUTO) 3.81 x10^3/uL (1.8-6.8); NEUTROPHILS % (AUTO) 53 % (42-75); PLATELET COUNT 321 x10^3/uL (130-400); RED BLOOD COUNT 3.72 x10^6/uL (3.82-5.3); RED CELL DISTRIBUTION WIDTH 14.2 % (9.6-15.2)
[2019-03-09 10:01] LABS: ANION GAP 4 mmol/L (5-15); CALCIUM 7.8 mg/dL (8.5-10.1); CHLORIDE 114 mmol/L (98-107); CREATININE 0.75 mg/dL (0.55-1.02)
[2019-03-09] MEDS ORDERED: CIPR500T87 PO (11:54)
[2019-03-09] MEDS ORDERED: METR500T PO (11:54)
[2019-03-09] MEDS ORDERED: ACID1TAB7 PO (11:54)
[2019-03-09 13:04] VITALS: BP 157/76
[2019-03-09] MEDS ORDERED: POTASSIUM CHLORIDE 20 MEQ TAB.ER.PRT PO ONE (14:30)
[2019-03-09] MEDS ORDERED: CIPROFLOXACIN 500 MG TABLET PO SCH (21:00)
[2019-03-09] MEDS ORDERED: SODIUM CHLORIDE 0.9% 1,000 ML IV SCH (23:42)
== END 2019-03-09 15:20 | disposition home or self-care (01) | DRG 391 ==
LOC: ED 20:58 → EDIP 23:42 → 3N 03-07 14:26 → DCLOUNGE 03-09 15:11
PROVIDERS: ADMIT Family Medicine; ATTEND Family Medicine
PROC: 0T9B70Z Drainage of Bladder with Drainage Device, Via Natural or Artificial Opening (ICD-10-PCS; principal; 2019-03-06)
DX: K52.9 Noninfective gastroenteritis and colitis, unspecified (principal); K57.31 Diverticulosis of large intestine without perforation or abscess with bleeding; E87.1 Hypo-osmolality and hyponatremia; E03.9 Hypothyroidism, unspecified; E66.9 Obesity, unspecified; G62.9 Polyneuropathy, unspecified; I10 Essential (primary) hypertension; I73.9 Peripheral vascular disease, unspecified; Z68.34 Body mass index [BMI] 34.0-34.9, adult; Z82.3 Family history of stroke
CPT/HCPCS: 36415; 71045; 74177; 80048; 80053; 81001; 83690; 85025; 87046; 87086; 87324; 89055; 93005; 99285; G0378; J0744; Q9967; J7030